=== PATIENT | female | born 1950 | race Caucasian/White ===

== ENCOUNTER 2020-01-11 22:53 | Observation (INO) | payer MEDICARE, BC ==
[~2020-01-11] VITALS: Ht 165.1 cm; Wt 74.8 kg
[~2020-01-11 22:53] MED LIST: AMBIEN10 MG PO; CLONAZEPAM1 MG PO; NEXIUM 20MG CAP20 MG PO; SINGULAIR 110 MG/TAB PO; WELLBUTRIN SR150 M1 PO; XYZAL5 MG PO; ZOLOFT100 MG PO
[2020-01-12] VITALS (7 sets, daily range): BP systolic 113–154; BP diastolic 50–96; PULSE 72–94; TEMP 97.9–98.5
[2020-01-12] MEDS ORDERED: ADULT MULTIVIT1 EACH PO (00:04)
[2020-01-12] MEDS ORDERED: PYRIDIUM 100MG100 MG PO (00:05)
[2020-01-12] MEDS ORDERED: PRINIVIL10 MG PO (00:05)
[2020-01-12] MEDS ORDERED: MACROBID 1100 MG/CAP PO (00:06)
[2020-01-12] MEDS ORDERED: TEMOVATE0.05% TP (00:10)
[2020-01-12] MEDS ORDERED: SYNTHROID0.05 MG/TA PO (00:10)
--- NOTE | 2020-01-12 00:30 | NUR ---
Patient arrived via EMS. She is going to surgery at this time. Dr Mckeon seen patient. Consent signed and on the chart. Patient is going down via bed.
--- NOTE | 2020-01-12 02:00 | NUR ---
Patient is back from surgery. Denies pain and nausea. Assisted patient to bathroom. She is voiding without issues. Urine is orange/pink. Offered patient something to eat, she just wanted apple juice. No other changes at this time. Call light within reach.
--- NOTE | 2020-01-12 06:30 | NUR ---
Patient is doing well. Denies pain and nausea. She has been walking around the room without issues. Patient is hopine to discharge today. No other changes at this time. Call light within reach.
--- NOTE | 2020-01-12 07:44 | NUR ---
Sitting up in bed with eyes open. Denies pain at this time. Voiding without difficulty, says that her urine is orange from OTC medication that she was taking. Denies any needs at this time.
--- NOTE | 2020-01-12 09:20 | NUR ---
Reviewed discharge instructions with the patient. Questions answered. Patient vebralizes understanding and signs discharge paperwork. Discharge packet provided to the patient. Patient notified family that she is being discharged and needs picked up. Patient will use call light when family member is here to pick her up. Denies any additional needs at this time.
--- NOTE | 2020-01-12 09:37 | NUR ---
Patient ride here to pick her up. Walked out to [facility] by TRICIA Junior. Patient has all personal belongings.
[2020-01-13] MEDS ORDERED: BENADRYL25 M2 PO (14:52)
== END 2020-01-12 09:37 | disposition home or self-care (01) ==
LOC: SURG 22:53
PROVIDERS: ADMIT Urology
DX: N20.1 Calculus of ureter (principal); Z90.89 Acquired absence of other organs; Z90.49 Acquired absence of other specified parts of digestive tract; Z79.899 Other long term (current) drug therapy
CPT/HCPCS: C1769; C2617; G0378; G0379; J2370; J2704; J3010; J7030; Q9967

== ENCOUNTER 2020-01-13 13:16 | Day surgery (SDC) | payer MEDICARE, BC ==
[~2020-01-13] VITALS: Ht 165.1 cm; Wt 85.8 kg
[~2020-01-13 13:16] MED LIST changes: +ADULT MULTIVIT1 EACH PO; +MACROBID 1100 MG/CAP PO; +PRINIVIL10 MG PO; +PYRIDIUM 100MG100 MG PO; +SYNTHROID0.05 MG/TA PO; +TEMOVATE0.05% TP
[2020-01-13 14:23] VITALS: BP 137/59; PULSE 81; TEMP 98.2
[2020-01-13] MEDS ORDERED: BENADRYL25 M2 PO (14:52)
[2020-01-13 20:30] VITALS: BP 139/69; PULSE 76; TEMP 98.7
[2020-01-13 20:45] VITALS: BP 132/69; PULSE 76
[2020-01-13 21:00] VITALS: BP 127/60; PULSE 76
[2020-01-13 21:15] VITALS: BP 125/61; PULSE 77
--- NOTE | 2020-01-13 22:03 | NUR ---
Post-op vitals within normal limits. Patient denies pain. Voids x2. Urine clear and yellow. INT to left AC discontinued. Patient drank chicken broth and had a few crackers. No nausea or vomiting. Patient ambulates to the bathroom with no difficulty. Daughter at bedside. Patient assisted out to personal vehicle with surgical staff via wheelchair.
[2020-01-13 22:11] VITALS: BP 139/69; PULSE 76; TEMP 98.9
== END 2020-01-13 22:06 | disposition home or self-care (01) ==
LOC: SDCO 13:16 → SURG 21:08 → SDCO 22:06
DX: N20.1 Calculus of ureter (principal); Z79.899 Other long term (current) drug therapy; Z90.49 Acquired absence of other specified parts of digestive tract; Z90.89 Acquired absence of other organs
CPT/HCPCS: OP; C1769; J0690; J1100; J2370; J2405; J2704; J3010; J7120

== ENCOUNTER 2022-08-24 21:10 | Observation (INO) | payer MEDICARE, BC ==
[~2022-08-24] VITALS: Ht 167.6 cm; Wt 81.0 kg
[~2022-08-24 21:10] MED LIST changes: +BENADRYL25 M2 PO
[2022-08-24] MEDS ORDERED: SYNTHROID0.075 MG/T PO (22:09)
[2022-08-24] MEDS ORDERED: XYZAL5 MG PO (22:11)
[2022-08-24 22:17] VITALS: BP 173/72; PULSE 100; TEMP 98.5
--- NOTE | 2022-08-24 23:30 | NUR ---
Patient arrived to surgical unit from [facility] in [facility] via EMS at 2200. Reported pain was at a 3 on admission to right flank , increased to an 8 and given PRN Morphine around 2330. IV fluids running to IV site to right forearm. Voices no questionds, needs, or concerns. In bed with call light within reach.
[2022-08-24 23:34] VITALS: BP 119/50; PULSE 97; TEMP 98.2
[2022-08-25] VITALS (14 sets, daily range): BP systolic 92–153; BP diastolic 49–73; PULSE 96–113; TEMP 98.1–99.9
--- NOTE | 2022-08-25 05:43 | NUR ---
Patient reports PRN morphine was effective with pain management, and has denied needing any further pain medication. Voices no questions, needs, or concerns at this time. In bed with call light within reach.
--- NOTE | 2022-08-25 07:56 | NUR ---
Patient resting in bed. Alert & oriented. Pain rating 8/10, increasing with movement. Pain to right flank, radiating to her upper back. Morphine Prn given per orders. She is Npo, complaints of dry mouth, mouth swabs provided. Denies nausea. Ivf per orders. She has been up to the bathroom, voiding concentrated urine. No stone strained. Will monitor.
--- NOTE | 2022-08-25 10:35 | NUR ---
Patient to the OR with Shahla. Ivf to gravity. Will monitor
[2022-08-25] MEDS ORDERED: NORCO 325 MG-51 TAB PO (10:51)
[2022-08-25] MEDS ORDERED: PYRIDIUM 100MG100 MG PO (10:51)
[2022-08-25 12:47] LABS: HEMOGLOBIN 10.6 g/dl (12.5-16.0); MEAN CELL VOLUME 94 fl (80.0-100.0); MEAN CORPUSCULAR HEMOGLOBIN 28 pg (27-31); MEAN CORPUSCULAR HGB CONC 30 g/dl (33.0-37.0); MEAN PLATELET VOLUME 10.6 fl (7.4-10.4); PLATELET COUNT 150 K/mm3 (130-400); RED BLOOD COUNT 3.74 M/mm3 (4.10-5.30); REDCELL DISTRIBUTION WIDTH-CV 16.1 % (11.5-14.5)
[2022-08-25 12:57] LABS: CALCIUM 8.1 mg/dL (8.4-10.2); CREATININE, serum 1.3 mg/dL (0.57-1.11); POTASSIUM 4.7 mmol/L (3.5-4.5)
[2022-08-25 13:28] LABS: HEMATOCRIT 35.3 % (37.0-47.0)
--- NOTE | 2022-08-25 13:30 | NUR ---
Patient doing okay post op. Vss on O2. Tolerating PO intake, she has been up to the bathroom & voided blood tinged urine. Visitors at bedside.
--- NOTE | 2022-08-25 13:32 | NUR ---
Critical [facility] called to hospitalist
[2022-08-25 13:36] LABS: LYMPHOCYTE 22 % (20.0-51.0); NEUTROPHILS 42 % (42.0-75.2)
[2022-08-25 13:39] LABS: ANISOCYTOSIS 1+; BAND 36 % (0-10); HYPOCHROMIA 2+; MYELOCYTE 0 % (0-0); PLATELET ESTIMATE NORMAL (NORMAL)
--- NOTE | 2022-08-25 16:00 | NUR ---
PO lisinopril held herminia to soft blood pressures.
--- NOTE | 2022-08-25 16:28 | NUR ---
Stator Plate Washer met with patient for intake assessment/discharge planning. Patient presents alert and oriented, very talkative and pleasant. She states she lives alone at her home in [place], and her home is accessible to her. 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 She reports her primary care physician is Milena Sierra APRN/TRAVIS at [facility], and she is planning to attend her scheduled appointment on Saturday. She is going to have surgery to remove a kidney stone this morning, and plans to go home after. She states her pharmacy is [facility] in [place], and she has no problems obtaining her medications. She has both Medicare and ttwick healthcare coverage. She informs she has a son Rojas jang ([phone]) who is also her DPOA-HC; her paperwork is not on file but "locked up" at home. She has had a recent root canal and is taking antibiotics. Today is her grandson's 24th birthday and the family plans to celebrate at the [employer]. She informs she has two good friends Karla and Martina for social support; Martina is waiting to pick her up today after surgery to take her home. Patient denies any needs for discharge. *Discharge to home*
--- NOTE | 2022-08-25 17:57 | NUR ---
Patient doing better this evening. Vss on room air. given update. Visitors at bedside. Ivf per orders. Tolerating diet without nausea. She denies pain. Will monitor
--- NOTE | 2022-08-25 19:36 | NUR ---
pt resting in bed, friend at bedside. IV in right forearm leaking, new IV started in left hand. pt denies pain and nausea/ vomiting, tolerating dinner well. call light in reach. no needs at this time.
[2022-08-26 03:24] VITALS: BP 116/58; PULSE 95; TEMP 98.3
--- NOTE | 2022-08-26 06:17 | NUR ---
pt had an uneventful night. denies pain. bloody urine present. vital signs remain stable. no fevers/chills. no needs this morning.
[2022-08-26 06:28] LABS: MEAN CORPUSCULAR HGB CONC 32 g/dl (33.0-37.0); MEAN PLATELET VOLUME 11.7 fl (7.4-10.4); PLATELET COUNT 103 K/mm3 (130-400); RED BLOOD COUNT 3.04 M/mm3 (4.10-5.30); REDCELL DISTRIBUTION WIDTH-CV 16.3 % (11.5-14.5)
[2022-08-26 06:38] LABS: HEMATOCRIT 26.8 % (37.0-47.0); MEAN CELL VOLUME 88 fl (80.0-100.0); MEAN CORPUSCULAR HEMOGLOBIN 28 pg (27-31)
[2022-08-26 06:40] LABS: HEMOGLOBIN 8.5 g/dl (12.5-16.0)
[2022-08-26 06:42] LABS: CALCIUM 7.5 mg/dL (8.4-10.2); CREATININE, serum 1.3 mg/dL (0.57-1.11); POTASSIUM 4.3 mmol/L (3.5-4.5)
[2022-08-26 07:29] LABS: BAND 19 % (0-10); LYMPHOCYTE 5 % (20.0-51.0); NEUTROPHILS 73 % (42.0-75.2)
[2022-08-26 07:30] LABS: ANISOCYTOSIS 1+; PLATELET ESTIMATE NORMAL (NORMAL)
[2022-08-26 07:50] VITALS: BP 147/79; PULSE 97; TEMP 97.7
--- NOTE | 2022-08-26 10:43 | NUR ---
Pt. has discharge orders. INT discontinued from lt. hand. Pt. given and reviewed discharge paperwork. Pt. voices understanding. Pt. escorted out by [employer]ER.
== END 2022-08-26 10:30 | disposition home or self-care (01) ==
LOC: MEDICAL 21:10 → SURG 22:06
PROVIDERS: ADMIT Urology
DX: N20.1 Calculus of ureter (principal); J96.01 Acute respiratory failure with hypoxia; I16.0 Hypertensive urgency; I10 Essential (primary) hypertension; E03.9 Hypothyroidism, unspecified; Z79.899 Other long term (current) drug therapy; Z79.890 Hormone replacement therapy
CPT/HCPCS: C1769; C2617; G0378; G0379; J0696; J1100; J1885; J2270; J2405; J2704; J3010; J7030; J7120